=== PATIENT | female | born 1950 | race Caucasian/White ===

== ENCOUNTER 2018-03-07 06:22 | Day surgery (SDC) | payer MEDICARE, OTHER ==
[2017-06-21 12:02] VITALS: BMI 23.0
[2018-03-07] MEDS ORDERED: Midazolam 2 MG/2 ML VIAL ONE (09:11)
[2018-03-07] MEDS ORDERED: Propofol 10 mg/ml Inj (20 ML) ONE ×2 (09:11→09:30)
[2018-03-07] MEDS ORDERED: Lidocaine Hydrochloride 5 ML INJ ONE (09:11)
--- NOTE | 2018-03-07 09:14 | CP.SDSHP ---
Same Day Surgery H & P - History Proposed Procedure: EGD Pre-Op Diagnosis: Bloating, FHx gastric ca - Allergies Allergies: Allergies ampicillin Allergy (Verified 06/21/17 12:03) RASH tetanus toxoid, adsorbed Allergy (Verified 06/21/17 12:03) SWELLING tetracycline Allergy (Verified 06/21/17 12:03) RASH - Physical Exam General Appearance: nl Vital Signs: Vital Signs 03/07/18 07:36 Temperature 97.3 F L Pulse Rate 79 Respiratory 19 Rate Blood Pressure 117/81 O2 Sat by Pulse 98 Oximetry Mental Status: Alert & Oriented x3 Neuro: WNL Heart: WNL Lungs: WNL GI: WNL - {Optional Preform as Required} Abdomen: WNL - Impression Impression: Bloating. EGD Pt. Evaluated Today:Candidate for Anesthesia & Procedure: Yes - Date & Time Date: 03/07/18 Time: 09:13 Short Stay Discharge - Short Stay Discharge Admitting Diagnosis/Reason for Visit: ABDOMINAL DISTENSION (GASEOUS) Disposition: HOME/ ROUTINE
[2018-03-07] MEDS ORDERED: Simethicone 40 mg/0.6 ml Liquid (30 ml) ONE ×2 (09:25)
[2018-03-07 09:45] VITALS: TEMP 97
[2018-03-07 10:10] VITALS: O2SAT 100
[2018-03-07 11:09] VITALS: BP 120/60; PULSE 61; RESP 15
== END 2018-03-07 11:06 | disposition home or self-care (01) ==
LOC: C.ENDO 06:22
PROVIDERS: ATTEND Internal Medicine
DX: K29.50 Unspecified chronic gastritis without bleeding (principal); K31.9 Disease of stomach and duodenum, unspecified; K44.9 Diaphragmatic hernia without obstruction or gangrene; R14.0 Abdominal distension (gaseous); Z80.0 Family history of malignant neoplasm of digestive organs
CPT/HCPCS: 43239; 88305; J2250; J2704